=== PATIENT | female | born 1980 | race Caucasian/White ===

== ENCOUNTER 2019-11-04 22:21 | Outpatient (REF) | payer MEDICAID, SELFPAY ==
[2019-11-04 21:26] LABS: Calculated LDL 132 mg/dL (<100); Cholesterol 226 mg/dL (<200); HDL Cholesterol 56 mg/dL (40-60); Triglyceride 190 mg/dL (<150)
[2019-11-04 21:42] LABS: Hemoglobin A1C 5.1 % (3.8-5.6)
== END 2019-11-04 22:41 ==
LOC: LBN 22:21
PROVIDERS: PCP Nurse Practitioner; Visit Provider Nurse Practitioner
DX: Z13.6 Encounter for screening for cardiovascular disorders (principal); Z13.1 Encounter for screening for diabetes mellitus
CPT/HCPCS: 80061; 83036

== ENCOUNTER 2019-11-09 00:47 | Outpatient (CLI) | payer MEDICAID, SELFPAY ==
--- NOTE | 2019-11-09 09:15 | DI.RAD_ITS ---
EXAM: XR LUMBAR SPINE AP, LAT CLINICAL HISTORY: low back pain,M54.5, CHRONIC PAIN, G89.29. TECHNIQUE: 2D digital imaging was performed. COMPARISON: No exams were available for comparison FINDINGS: Vertebral bodies are well maintained in height. Disc spaces are well maintained. There is a slight dextro rotoscoliosis. No spondylolysis or spondylolisthesis is seen. An IUD is incidentally noted. IMPRESSION: Mild scoliosis. DATA REPOSITORY: RADIATION DOSE DELIVERED:
== END 2019-11-09 01:07 ==
PROVIDERS: PCP Nurse Practitioner; Visit Provider Nurse Practitioner
DX: M41.9 Scoliosis, unspecified (principal); M54.5 Low back pain; G89.29 Other chronic pain
CPT/HCPCS: 72100

== ENCOUNTER 2021-03-22 08:23 | Emergency (ER) | payer MEDICAID, SELFPAY ==
[2021-03-22] VITALS (10 sets, daily range): BP systolic 128–135; BP diastolic 84–98; PULSE 74–135; RESP 20–29; TEMP 36.4; O2SAT 99–100
--- NOTE | 2021-03-22 08:30 | RT.EKG_ITS ---
APPROVED REPORT Exam: Resting ECG Reason for Exam: tachycardia Patient Location: E HR:121 bpm ECG Measurements Heart Rate 121 AXIS SC 123 P 62 QRSd 84 QRS 80 QT 325 T -30 QTc 461 Conclusion Sinus tachycardia...rate> 99 Probable left atrial enlargement...P >50mS, <-0.10mV V1
--- NOTE | 2021-03-22 08:45 | DI.CT_ITS ---
Exam(s) CT ABDOMEN PELVIS W EXAM: CT ABDOMEN PELVIS W CLINICAL HISTORY: epigastric pain, vomiting. TECHNIQUE: Imaging Protocol: Axial computed tomography images with coronal and sagittal reformatted images were created and reviewed CONTRAST MATERIAL: Intravenous: Omnipaque 100cc Oral: None COMPARISON: No exams were available for comparison FINDINGS: VISUALIZED LUNG BASES: No nodules nor pleural effusions evident. ABDOMEN: There is a moderate amount of ascites in both the upper abdomen and in the pelvis. Also fluid around the GE junction. There is a small hiatal hernia. No free air evident. LIVER: There are no focal hepatic lesions evident. Mild steatosis. Perihepatic ascites noted GALLBLADDER/BILIARY: Gallbladder is folded upon itself. However, no gallstones evident. No gallblad luana wall edema. No pericholecystic fluid. CBD is not dilated. PANCREAS: No evidence of pancreatic mass nor dilatation of the pancreatic duct. SPLEEN: Perisplenic fluid noted. No splenic laceration. Spleen size normal. Splenic and portal vei ns are patent. ADRENALS: There are no significant adrenal masses. KIDNEYS:No cysts evident. No solid renal masses. No calculi nor hydronephrosis.. ABDOMINAL AORTA: Abdominal aorta is not enlarged. LYMPH NODES:There is no retroperitoneal nor paraaortic adenopathy. ABDOMINAL WALL: No evidence of significant anterior abdominal wall nor inguinal hernia. GI: There is diffuse edema of multiple small bowel loops. These bowel loops measure less than 2.5 cm in diameter but exhibits uniform wall thickening of approximately 6 millimeters and this is most pro bably responsible for the ascites. There does not appear to be an obvious corresponding colitis alejandro lynda. Celiac artery is patent. Superior mesenteric artery is patent and without evidence of emboli t herein. Inferior mesenteric artery is patent. PELVIS: GI: No evidence of appendicitis.No evidence of sigmoid diverticulitis. LYMPH NODES: There is no intrapelvic nor inguinal adenopathy. REPRODUCTIVE: There is an IUD in the uterine canal. This appears to be in satisfactory position. Th e uterus is anteverted. The ovaries contain cysts. Largest cyst in the right ovary measures 2.9 x 0 .2 cm. There is a smaller partially enhancing probable hemorrhagic cyst in left ovary measuring 11 x 12 millimeters URINARY BLADDER: No calculi nor obvious masses evident OSSEOUS: No significant osseous lesions. Sacroiliac joints unremarkable. IMPRESSION: 1. There are multiple edematous small bowel loops with resultant moderate ascites. Consistent with s evere enteritis. There is no obvious colitis pattern. No bowel obstruction. No free air. No absce ss. 2. Ovarian cysts, as described above. 3. There is an IUD in the uterus which appears to be in satisfactory position. Report called by myself to ER provider. RADIATION DOSE DELIVERED: 875.94mGy.cm Total DLP DATA REPOSITORY: All CT scans at this facility are submitted to the National Radiology Data Registry (NRDR) Dose Index Registry (DIR) with the [employer] (A[employer]). RADIATION OPTIMIZATION: All CT scans at this facility use at least one of these dose optimization te chniques: automated exposure control; mA and/or kV adjustment per patient size (includes targeted exa ms where dose is matched to clinical indication); or iterative reconstruction.
[2021-03-22 09:10] LABS: Abs Immature Grans 0.11 10^3/uL (0.0-0.06); Absolute Eosinophil Count 0.04 10^3/uL (0.0-0.7); Absolute Lymphocyte Count 1.38 10^3/uL (1.2-3.4); Absolute Monocyte Count 1.07 10^3/uL (0.1-0.8); Basophils % 0.4; Eosinophils % 0.2; HCT 47.7 % (36.0-46.0); HGB 15.8 g/dL (11.2-15.7); Immature Grans % 0.6; Lymphocytes % 7.6; MCH 30.4 pg (27.0-33.0); MCHC 33.1 % (32.0-36.0); MCV 91.9 fL (80-95); MPV 11.2 fL (8.0-11.0); Monocytes % 5.9; Neutrophils % 85.3; Nucleated RBC 0 %; Platelet Count 251 10^3/uL (130-400); RBC 5.19 10^6/uL (3.93-5.22); RDW 13.2 % (11.7-14.6); WBC 18.13 10^3/uL (4.4-10.8)
[2021-03-22 09:12] LABS: Absolute Basophil Count 0.07 10^3/uL (0.0-0.2); Absolute Neutrophil Count 15.46 10^3/uL (1.2-6.7)
[2021-03-22] MEDS: Normal Saline 1,000 ML 2000 ML IV (09:12)
[2021-03-22 09:25] LABS: Lipase 213 U/L (73-393)
[2021-03-22 09:32] LABS: HCG Qual (Serum) Negative
[2021-03-22] MEDS: ACETAMINOPHEN 1,000 MG/100 ML BTL 400 MG IVPB (09:35)
[2021-03-22 10:08] LABS: ALT 89 U/L (14-59); AST 26 U/L (15-37); Albumin 4.2 g/dL (3.4-5.0); Alkaline Phosphatase 61 U/L (46-116); Anion Gap 14.6 mmol/L (3-11); BUN 21 mg/dL (7-18); CO2 25.4 mmol/L (21.0-32.0); CREATININE 0.9 mg/dL (0.55-1.02); Calcium 10.1 mg/dL (8.5-10.1); Chloride 96 mmol/L (98-107); Glucose 154 mg/dL (74-106); Magnesium 1.8 mg/dL (1.8-2.4); Potassium 3.4 mmol/L (3.5-5.1); Sodium 136 mmol/L (136-145); Troponin I < 0.05 ng/mL (<0.06)
[2021-03-22 10:48] LABS: Bilirubin Moderate (Negative); Blood Negative (Negative); Clarity Clear (Clear); Glucose Negative (Negative); Ketones >=160 mg/dL (Negative); Leukocyte Esterase Negative (Negative); Nitrite Negative (Negative); Specific Gravity 1.025 (1.005-1.025); Urobilinogen 0.2 EU/dL (Up TO 0.2)
[2021-03-22 10:59] LABS: Bacteria Few HPF (Negative); C & S Indicated? No/Sq. Contamination; Casts Negative LPF (Negative); Crystals Negative HPF (Negative); Epithelial Cells Many HPF (Negative); Mucus Moderate (Negative); RBC 0-2 HPF (0-2); WBC 0-2 HPF (0-5)
[2021-03-22] MEDS: Omnipaque 350 MG/ML 100 ML BTL IJ (11:00)
--- NOTE | 2021-03-22 11:10 | DI.RAD_ITS ---
Exam(s) XR CHEST 2V PA LATERAL EXAM: XR CHEST 2V PA LATERAL CLINICAL HISTORY: epigastric pain. TECHNIQUE: 2D digital imaging was performed. COMPARISON: CT CT ABDOMEN PELVIS W from 03/22/[address] ABDOMEN PELVIS W from 03/22/2021 FINDINGS: Heart size is normal. The mediastinum is not widened. Lungs are clear. No infiltrates nor pleural effusions. IMPRESSION: No acute pulmonary findings. DATA REPOSITORY: RADIATION DOSE DELIVERED:
--- NOTE | 2021-03-22 12:43 | W.ED.GENAD ---
Discharge Plan Disposition Patient Disposition: HOME Condition: Stable Discharge Details Clinical Impression: Nausea vomiting and diarrhea, Dehydration Primary Care Provider: Ronna Suazo ED Provider: Susie Rachel Home Meds and New Rx's Prescriptions: New promethazine 25 mg tablet 25 mg PO TID Qty: 10 RF: 0 potassium chloride 20 mEq tablet,ER particles/crystals 20 meq PO DAILY Qty: 7 RF: 0 Continued lisinopril 5 mg tablet 5 mg PO DAILY Qty: 90 RF: 4 Mirena 1 EACH intrauterine device RF: 0 Discharge Instructions Instructions: Dehydration (ED), Acute Nausea and Vomiting (ED) Additional Instructions: Phenergan for nausea and vomiting Gatorade, water, Jell-O, broth Please return with inability to consume p.o. fluids, recurrent abdominal pain, fever, or with any new or worsening complaints Bring a stool sample and if you are able to Isolate until your Covid test returns Start taking the potassium tomorrow Stand Alone Forms: PENDING COVID-19 TESTING, Work Release Referrals: Ronna Suazo, SENIOR OFFICE ASSISTANT [Primary Care Provider] - Discharge Data Discharge Date/Time-TO BE ENTERED AT DEPARTURE: 03/22/21 13:46 Medical Decision Making Patient has leukocytosis, 18,000, mild, hypokalemia, 3.4, and mild gap of 14 She does have ketones in her urine consistent with dehydration, she was given 2 L bolus, Phenergan CT was ordered secondary to diffuse abdominal tenderness Patient also initially tachycardic with abnormal vital signs, however at time of reassessment, patient is resting comfortably in room, her pulse is now 86 and her vitals are stable Her abdomen is just minimally tender without rebound or guarding and she has not vomited throughout her stay P.o. challenge was initiated Discussed with the radiologist, Dr. Daniel I relayed the findings consistent with likely viral enteritis on CT scan Case was subsequently discussed with Dr. Garcia given severity of imaging Patient is feeling marked improvement she requested return, I think at this time she is stable for discharge home, she is given a lab sheet for stool sample in the outpatient setting and she is able to tolerate p.o. She is given antiemetics for home Discussed p.o. liquids small amounts frequently Covid test pending and patient will isolate turns Patient is ill with significant CT findings, we did talk about admission but as patient is feeling marked improvement and able to tolerate p.o. and about status is quite limited, I do not think is unreasonable to perform at home trial Patient feels comfortable with this plan and will return immediately should she have persistent or worsening symptoms Return precautions discussed in great detail, patient alert, oriented, of decisional capacity discharged home in care of partner HPI General Mode of arrival: ambulatory. Date/Time Provider Initiated Documentation: 03/22/21 08:28. Limitations to Documentation: no limitations. Information obtained by: patient. HPI Narrative: This 40-year-old female presents of nausea, vomiting, diarrhea, abdominal pain persistent for the past 2 days. Otherwise healthy aside from history of hypertension. Denies any chest pain or shortness of breath. Denies any dizziness or weakness. Denies any blood in vomitus or stool. Covid vaccinated, denies any cough or fever. Any known sick contacts. Symptoms started after consuming a meal at a restaurant approximately 6 hours later with initially complaints of nausea and vomiting.. Given her persistent symptoms, she presents here. She does consume alcohol approximately 3-4 drinks daily. Denies history of withdrawal symptoms in the past. Related Data Home Medications Medication Instructions Recorded Confirmed Mirena 01/12/15 12/01/20 lisinopril 5 mg tablet 5 mg PO DAILY #90 tab 12/01/20 03/22/21 potassium chloride 20 meq PO DAILY #7 tab 03/22/21 promethazine 25 mg PO TID #10 tab 03/22/21 Previous Rx's Medication Instructions Recorded lisinopril 5 mg tablet 5 mg PO DAILY #90 tab 12/01/20 potassium chloride 20 meq PO DAILY #7 tab 03/22/21 promethazine 25 mg PO TID #10 tab 03/22/21 Allergies Allergy/AdvReac Type Severity Reaction Status Date / Time No Known Allergies Allergy Verified 03/22/21 09:24 General Stated Complaint: Abd Prob VALENTIN: 3 Review of Systems All systems reviewed & are unremarkable except as noted in HPI and below PFSH All Active Problems (Updated 03/22/21 @ 12:49 by SILVIA Gross) Nausea vomiting and diarrhea (Acute) Dehydration (Acute) Hypertension (Chronic) Low back pain (Acute) Excessive drinking of alcohol (Acute) Tobacco dependence (Acute) Obesity (Chronic) Anxiety (Chronic) Depression (Chronic) Surgical History (Updated 01/28/18 @ 14:36 by [facility]) section Open Carpal Tunnel release Family History Father Heart disease in his 60s Social History (Updated 11/10/20 @ 08:52 by Brendon Nielsen) Smoking/Tobacco Use Status: Current every day Tobacco Type: cigarettes Tobacco: How many years used: 22 Counseling given: counseling >3 minutes Smoking risk assessment performed?: Yes Drug use: Never Substance use type: does not use Caregiver/Support person: No Household members: children Housing: apartment Communication Needs: None Do you need help understanding health information?: Rarely Pets and animals: Yes Pets and animals: cat(s) Sexually active: No Do you think of yourself as: straight/heterosexual Current gender identity: female What is your relationship status?: never How often do you talk on the phone with friends or family?: twice per week How often do you get together with friends or relatives?: twice per week How often do you attend hinduism or religion services?: 1-3 times per year Do you belong to any clubs or organized social groups?: no Panel score (0-1 are the most socially isolated patients): 1 What type of physical activity do you participate in: other Details: work Duration: < 15 minutes/day Frequency: 3-4 times per week Brittaney/Samaritan: Scientology Special brittaney needs: No Seatbelt use: always Helmet use: Yes Helmet use: always Drive intox or ride w/intox water tanker driver: No Do you feel safe at home: Yes Do you feel safe in your relationship?: Yes Exam Const General: cooperative and comfortable HENME Other: Moist mucous membranes Eyes Sclera: sclerae normal Resp Effort & Inspection: normal respiratory effort Auscultation: clear to auscultation bilaterally Cardio Rate: regular rate Rhythm: regular rhythm Other: Distal pulses intact GI Other: Diffuse abdominal tenderness without rebound or guarding Skin General skin exam: no rashes or lesions noted Neuro General: patient alert and patient oriented x3 Extrem Other: No peripheral edema Course Vital Signs Vital signs: Vital Signs Temperature 36.4 C L 03/22/21 08:27 Pulse 135 H 03/22/21 08:27 Blood Pressure 135/98 H 03/22/21 08:27 Pulse Oximetry 99 03/22/21 08:27 Temperature 36.4 C L 03/22/21 08:27 Temperature Source Temporal Artery Scan 03/22/21 08:27 Pulse 83 03/22/21 10:45 Pulse 88 03/22/21 10:50 Respiratory Rate 29 H 03/22/21 10:50 Blood Pressure 128/84 03/22/21 10:45 Blood Pressure Mean 95 03/22/21 10:45 Blood Pressure Position Supine 03/22/21 08:27 Pulse Oximetry 99 03/22/21 10:50 Oxygen Delivery Method Room Air 03/22/21 08:27 Oxygen Flow Rate 0 03/22/21 08:27 Lab/Test Results Lab/Test Results: Laboratory Tests Range/Units 03/22/21 03/22/21 03/22/21 08:50 08:50 08:50 WBC (4.4-10.8) 10^3/uL 18.13 H RBC (3.93-5.22) 10^6/uL 5.19 Hgb (11.2-15.7) g/dL 15.8 H Hct (36.0-46.0) % 47.7 H MCV (80-95) fL 91.9 MCH (27.0-33.0) pg 30.4 MCHC (32.0-36.0) % 33.1 RDW (11.7-14.6) % 13.2 Plt Count (130-400) 10^3/uL 251 MPV (8.0-11.0) fL 11.2 H Immature Gran % 0.6 Neutrophils % 85.3 Lymphocytes % 7.6 Monocytes % 5.9 Eosinophils % 0.2 Basophils % 0.4 Nucleated RBC % % 0 Absolute Neutrophils (1.2-6.7) 10^3/uL 15.46 H Absolute Lymphocytes (1.2-3.4) 10^3/uL 1.38 Absolute Monocytes (0.1-0.8) 10^3/uL 1.07 H Absolute Eosinophils (0.0-0.7) 10^3/uL 0.04 Absolute Basophils (0.0-0.2) 10^3/uL 0.07 Sodium (136-145) mmol/L 136 Potassium (3.5-5.1) mmol/L 3.4 L Chloride (98-107) mmol/L 96 L Carbon Dioxide (21.0-32.0) mmol/L 25.4 Anion Gap (3-11) mmol/L 14.6 H BUN (7-18) mg/dL 21 H Creatinine (0.55-1.02) mg/dL 0.9 Estimated GFR/1.73 m2 (mL/min/1.73m2) >= 60.00 Glucose (74-106) mg/dL 154 H Calcium (8.5-10.1) mg/dL 10.1 Magnesium (1.8-2.4) mg/dL 1.8 Total Bilirubin (0.2-1.0) mg/dL 1.0 AST (15-37) U/L 26 ALT (14-59) U/L 89 H Alkaline Phosphatase (46-116) U/L 61 Troponin I (<0.06) ng/mL < 0.05 Total Protein (6.4-8.2) g/dL 8.0 Albumin (3.4-5.0) g/dL 4.2 Lipase (73-393) U/L 213 Serum HCG, Qual Urine Color (Yellow) Urine Clarity (Clear) Urine pH (5-8) Ur Specific [place] (1.005-1.025) Urine Protein (Negative) mg/dL Urine Ketones (Negative) mg/dL Urine Blood (Negative) Urine Nitrite (Negative) Urine Bilirubin (Negative) Urine Urobilinogen (Up TO 0.2) EU/dL Ur Leukocyte Esterase (Negative) Urine RBC (0-2) HPF Urine WBC (0-5) HPF Ur Epithelial Cells (Negative) HPF Urine Crystals (Negative) HPF Urine Bacteria (Negative) HPF Urine Casts (Negative) LPF Urine Mucus (Negative) Ur Culture Indicated? Urine Glucose (Negative) mg/dL Range/Units 03/22/21 03/22/21 03/22/21 08:50 10:38 11:45 WBC (4.4-10.8) 10^3/uL RBC (3.93-5.22) 10^6/uL Hgb (11.2-15.7) g/dL Hct (36.0-46.0) % MCV (80-95) fL MCH (27.0-33.0) pg MCHC (32.0-36.0) % RDW (11.7-14.6) % Plt Count (130-400) 10^3/uL MPV (8.0-11.0) fL Immature Gran % Neutrophils % Lymphocytes % Monocytes % Eosinophils % Basophils % Nucleated RBC % % Absolute Neutrophils (1.2-6.7) 10^3/uL Absolute Lymphocytes (1.2-3.4) 10^3/uL Absolute Monocytes (0.1-0.8) 10^3/uL Absolute Eosinophils (0.0-0.7) 10^3/uL Absolute Basophils (0.0-0.2) 10^3/uL Sodium (136-145) mmol/L Potassium (3.5-5.1) mmol/L Chloride (98-107) mmol/L Carbon Dioxide (21.0-32.0) mmol/L Anion Gap (3-11) mmol/L BUN (7-18) mg/dL Creatinine (0.55-1.02) mg/dL Estimated GFR/1.73 m2 (mL/min/1.73m2) Glucose (74-106) mg/dL Calcium (8.5-10.1) mg/dL Magnesium (1.8-2.4) mg/dL Total Bilirubin (0.2-1.0) mg/dL AST (15-37) U/L ALT (14-59) U/L Alkaline Phosphatase (46-116) U/L Troponin I (<0.06) ng/mL Cancelled Total Protein (6.4-8.2) g/dL Albumin (3.4-5.0) g/dL Lipase (73-393) U/L Serum HCG, Qual Negative Urine Color (Yellow) Yellow Urine Clarity (Clear) Clear Urine pH (5-8) 6.0 Ur Specific [place] (1.005-1.025) 1.025 Urine Protein (Negative) mg/dL 30 H Urine Ketones (Negative) mg/dL >=160 H Urine Blood (Negative) Negative Urine Nitrite (Negative) Negative Urine Bilirubin (Negative) Moderate H Urine Urobilinogen (Up TO 0.2) EU/dL 0.2 Ur Leukocyte Esterase (Negative) Negative Urine RBC (0-2) HPF 0-2 Urine WBC (0-5) HPF 0-2 Ur Epithelial Cells (Negative) HPF Many Urine Crystals (Negative) HPF Negative Urine Bacteria (Negative) HPF Few Urine Casts (Negative) LPF Negative Urine Mucus (Negative) Moderate Ur Culture Indicated? No/Sq. Contamination Urine Glucose (Negative) mg/dL Negative POC- Test(urine) Negative PAWSS Have you Been Recently Intoxicated or Drunk Within the Last 30 days?: No Have you Ever Experienced Previous Episodes of Alcohol Withdrawal?: Yes Have you ever Experienced Withdrawal Seizures?: No Have you ever Experienced Delirium Tremens(DT)s?: No Have you ever undergone Alcohol Rehabilitation Treatment (i.e, inpt ot outpatient treatment programs)?: No Have you ever Experienced Blackouts?: No Have you ever Combined Alcohol with other Downers within the last 90 days?: No Have you ever Combined Alcohol with any other Substance of Abuse during the last 90 days?: No Positive Blood Alcohol level on Presentation? [PCS.BAL]: No Evidence of Increased Autonomic Activity (i.e. HR>120, tremor, sweating, agitation, nausea)?: No Result: 1
[2021-03-23 18:55] LABS: COVID-19 RT-PCR UVMMC Result Negative (Negative)
== END 2021-03-22 13:46 | disposition home or self-care (01) ==
PROVIDERS: Emergency Provider Physician Assistant; PCP Nurse Practitioner
DX: R11.2 Nausea with vomiting, unspecified (principal); R19.7 Diarrhea, unspecified; E86.0 Dehydration; R00.0 Tachycardia, unspecified; R10.13 Epigastric pain; E87.6 Hypokalemia
CPT/HCPCS: 36415; 80053; 81025; 83690; 93005; 96361; 96365; 96367; 99285; U0003; 71046; 74177; 81003; 81015; 83735; 84484; 84703; 85025; 93010; 99284; J0131; J3490

== ENCOUNTER 2021-03-25 09:16 | Emergency (ER) | payer MEDICAID, SELFPAY ==
[2021-03-25 09:20] VITALS: BP 129/95; PULSE 123; RESP 16; TEMP 36.3; O2SAT 100
[2021-03-25] MEDS: Ondansetron 4 MG/2 ML VIAL IVP (10:04)
[2021-03-25 10:11] LABS: Abs Immature Grans 0.06 10^3/uL (0.0-0.06); Absolute Basophil Count 0.07 10^3/uL (0.0-0.2); Absolute Eosinophil Count 0.26 10^3/uL (0.0-0.7); Basophils % 0.5; HCT 47.7 % (36.0-46.0); HGB 15.7 g/dL (11.2-15.7); Immature Grans % 0.5; Lymphocytes % 9.8; MCH 30.6 pg (27.0-33.0); MCHC 32.9 % (32.0-36.0); MPV 10.7 fL (8.0-11.0); Monocytes % 6.8; Neutrophils % 80.4; Nucleated RBC 0 %; Platelet Count 256 10^3/uL (130-400); RBC 5.13 10^6/uL (3.93-5.22); RDW 12.3 % (11.7-14.6); RDW-SD 42.5 fL; WBC 13.22 10^3/uL (4.4-10.8)
[2021-03-25 10:14] LABS: Absolute Neutrophil Count 10.63 10^3/uL (1.2-6.7)
[2021-03-25] MEDS: Normal Saline 1,000 ML 1000 ML IV (10:21)
[2021-03-25 10:26] LABS: ALT 51 U/L (14-59); AST 21 U/L (15-37); Albumin 4.2 g/dL (3.4-5.0); Alkaline Phosphatase 63 U/L (46-116); Anion Gap 18.7 mmol/L (3-11); BUN 18 mg/dL (7-18); Bilirubin, Total 0.6 mg/dL (0.2-1.0); CO2 18.3 mmol/L (21.0-32.0); CREATININE 0.8 mg/dL (0.55-1.02); Calcium 10.6 mg/dL (8.5-10.1); Chloride 96 mmol/L (98-107); Glucose 95 mg/dL (74-106); Lipase 115 U/L (73-393); Potassium 3.4 mmol/L (3.5-5.1); Sodium 133 mmol/L (136-145); Total Protein 8.2 g/dL (6.4-8.2)
[2021-03-25 10:36] VITALS: BP 115/81; PULSE 84; RESP 14; O2SAT 98
[2021-03-25] MEDS: Dicyclomine 20 MG TAB PO (10:50)
[2021-03-25] MEDS: Ketorolac 30 MG/ML VIAL IVP (10:50)
--- NOTE | 2021-03-25 11:11 | ED.GENADUL_ITS ---
Discharge Plan Disposition Patient Disposition: HOME Condition: Improving Discharge Details Clinical Impression: Nausea vomiting and diarrhea, Abdominal pain Primary Care Provider: Ronna Suazo ED Provider: Shlomo Barrera Home Meds and New Rx's Prescriptions: New ondansetron HCl [Zofran] 4 mg tablet 4 mg PO Q8H PRNQty: 10 RF: 0 dicyclomine 20 mg tablet 20 mg PO QID Qty: 10 RF: 0 omeprazole 20 mg capsule,delayed release(DR/EC) 20 mg PO BID Qty: 14 RF: 0 Continued lisinopril 5 mg tablet 5 mg PO DAILY Qty: 90 RF: 4 Mirena 1 EACH intrauterine device RF: 0 promethazine 25 mg tablet 25 mg PO TID Qty: 10 RF: 0 potassium chloride 20 mEq tablet,ER particles/crystals 20 meq PO DAILY Qty: 7 RF: 0 Discharge Instructions Instructions: Acute Nausea and Vomiting (ED), Abdominal Pain (ED) Additional Instructions: Clear liquid diet, advance as tolerated. Zofran, omeprazole, Bentyl as directed. [id number]-varasfw Imodium as directed. Please watch for new or worsening symptoms and return to the ER for any concerns. Otherwise I recommend reaching out your primary care provider tomorrow to discuss your ER visit, ongoing symptoms, need for outpatient reevaluation Discharge Data Discharge Date/Time-TO BE ENTERED AT DEPARTURE: 03/25/21 13:25 Medical Decision Making 40-year-old female presents with continuation of abdominal pain, nausea, vomiting, diarrhea. She clinically appears dry, will obtain IV access, give IV Zofran, IV fluid, obtain routine scNeening laboratory values. Abdomen is soft, nonsurgical. Reviewing her recent visit, CT imaging revealed what appeared to be enteritis. Laboratory values today revealed improving leukocytosis of 13.22. Anion gap 18.7. Patient is receiving 1 L normal saline I will give another liter of lactated Ringer's and recheck her BNP. Given her decreasing leukocytosis, we discussed options. Discussed that we could certainly repeat his CT today, patient declines as she had one during her last visit. She responded nicely to the Zofran, denies any vomiting while here in the ER and reports nausea is improved. Plan is to give IV Toradol, p.o. Bentyl and a GI cocktail. Patient is unable to provide us a stool sample, no diarrhea while here under my care. Her urinalysis reveals greater than 1 ketones but no signs of infection. As stated above, patient is receiving 2 L of IV fluid. Upon reevaluation she reports that her symptoms have resolved completely with th e medications given. Repeat anion gap 11.1, closing nicely with IV hydration. Clinically she appears well, nontoxic, no distress. Vital signs are unremarkable. She is hemodynamically stable. Abdomen is soft, nontender, she is afebrile, certainly nonsurgical abdominal examination at this time. Given her ongoing symptoms and recent ER visit, very strict discharge and return precautions were provided. I will provide her a prescription of Bentyl and Zofran. Given she feels as though there is a component of acid reflux, I will also prescribe omeprazole. She was instructed to contact her primary care provider to discuss her ongoing symptoms and potential need to have referral to GI specialist, endoscopy, colonoscopy, etc. for further evaluation of her ongoing symptoms. This documentation was generated using [employer] dictation system, please disregard any oddities of phrase or misspellings. Medical Records Medical records reviewed: Yes I reviewed the patient's medical records. Lab Data Lab results reviewed: Yes I reviewed the patient's lab results. Labs: Laboratory Tests Range/Units 03/25/21 03/25/21 03/25/21 10:00 10:00 11:30 WBC (4.4-10.8) 10^3/uL 13.22 H RBC (3.93-5.22) 10^6/uL 5.13 Hgb (11.2-15.7) g/dL 15.7 Hct (36.0-46.0) % 47.7 H MCV (80-95) fL 93.0 MCH (27.0-33.0) pg 30.6 MCHC (32.0-36.0) % 32.9 RDW (11.7-14.6) % 12.3 Plt Count (130-400) 10^3/uL 256 MPV (8.0-11.0) fL 10.7 Immature Gran % 0.5 Neutrophils % 80.4 Lymphocytes % 9.8 Monocytes % 6.8 Eosinophils % 2.0 Basophils % 0.5 Nucleated RBC % % 0 Absolute Neutrophils (1.2-6.7) 10^3/uL 10.63 H Absolute Lymphocytes (1.2-3.4) 10^3/uL 1.30 Absolute Monocytes (0.1-0.8) 10^3/uL 0.90 H Absolute Eosinophils (0.0-0.7) 10^3/uL 0.26 Absolute Basophils (0.0-0.2) 10^3/uL 0.07 Sodium (136-145) mmol/L 133 L Potassium (3.5-5.1) mmol/L 3.4 L Chloride (98-107) mmol/L 96 L Carbon Dioxide (21.0-32.0) mmol/L 18.3 L Anion Gap (3-11) mmol/L 18.7 H BUN (7-18) mg/dL 18 Creatinine (0.55-1.02) mg/dL 0.8 Estimated GFR/1.73 m2 (mL/min/1.73m2) >= 60.00 Glucose (74-106) mg/dL 95 Calcium (8.5-10.1) mg/dL 10.6 H Total Bilirubin (0.2-1.0) mg/dL 0.6 AST (15-37) U/L 21 ALT (14-59) U/L 51 Alkaline Phosphatase (46-116) U/L 63 Total Protein (6.4-8.2) g/dL 8.2 Albumin (3.4-5.0) g/dL 4.2 Lipase (73-393) U/L 115 Urine Color (Yellow) Yellow Urine Clarity (Clear) Sl Cloudy Urine pH (5-8) 6.0 Ur Specific [place] (1.005-1.025) >= 1.030 H Urine Protein (Negative) mg/dL 30 H Urine Ketones (Negative) mg/dL >=160 H Urine Blood (Negative) Negative Urine Nitrite (Negative) Negative Urine Bilirubin (Negative) Moderate H Urine Urobilinogen (Up TO 0.2) EU/dL 0.2 Ur Leukocyte Esterase (Negative) Negative Urine RBC (0-2) HPF 0-2 Urine WBC (0-5) HPF 0-2 Ur Epithelial Cells (Negative) HPF Many Urine Crystals (Negative) HPF Negative Urine Bacteria (Negative) HPF Few Urine Casts (Negative) LPF Negative Urine Mucus (Negative) Moderate Ur Culture Indicated? No/Sq. Contamination Urine Glucose (Negative) mg/dL Negative Range/Units 03/25/21 12:35 WBC (4.4-10.8) 10^3/uL RBC (3.93-5.22) 10^6/uL Hgb (11.2-15.7) g/dL Hct (36.0-46.0) % MCV (80-95) fL MCH (27.0-33.0) pg MCHC (32.0-36.0) % RDW (11.7-14.6) % Plt Count (130-400) 10^3/uL MPV (8.0-11.0) fL Immature Gran % Neutrophils % Lymphocytes % Monocytes % Eosinophils % Basophils % Nucleated RBC % % Absolute Neutrophils (1.2-6.7) 10^3/uL Absolute Lymphocytes (1.2-3.4) 10^3/uL Absolute Monocytes (0.1-0.8) 10^3/uL Absolute Eosinophils (0.0-0.7) 10^3/uL Absolute Basophils (0.0-0.2) 10^3/uL Sodium (136-145) mmol/L 135 L Potassium (3.5-5.1) mmol/L 3.5 Chloride (98-107) mmol/L 101 Carbon Dioxide (21.0-32.0) mmol/L 22.9 Anion Gap (3-11) mmol/L 11.1 H BUN (7-18) mg/dL 19 H Creatinine (0.55-1.02) mg/dL 0.8 Estimated GFR/1.73 m2 (mL/min/1.73m2) >= 60.00 Glucose (74-106) mg/dL 82 Calcium (8.5-10.1) mg/dL 9.3 Total Bilirubin (0.2-1.0) mg/dL AST (15-37) U/L ALT (14-59) U/L Alkaline Phosphatase (46-116) U/L Total Protein (6.4-8.2) g/dL Albumin (3.4-5.0) g/dL Lipase (73-393) U/L Urine Color (Yellow) Urine Clarity (Clear) Urine pH (5-8) Ur Specific [place] (1.005-1.025) Urine Protein (Negative) mg/dL Urine Ketones (Negative) mg/dL Urine Blood (Negative) Urine Nitrite (Negative) Urine Bilirubin (Negative) Urine Urobilinogen (Up TO 0.2) EU/dL Ur Leukocyte Esterase (Negative) Urine RBC (0-2) HPF Urine WBC (0-5) HPF Ur Epithelial Cells (Negative) HPF Urine Crystals (Negative) HPF Urine Bacteria (Negative) HPF Urine Casts (Negative) LPF Urine Mucus (Negative) Ur Culture Indicated? Urine Glucose (Negative) mg/dL HPI General Mode of arrival: ambulatory . Date/Time Provider Initiated Documentation: 03/25/21 09:17 . Limitations to Documentation: no limitations . Information obtained by: patient . HPI Narrative: This is a 40-year-old female, past medical history of hypertension, alcohol abuse, current smoker, anxiety, depression, presenting to the ER for ongoing nausea, vomiting, abdominal cramping, diarrhea. Patient states that she was seen in the ER on 03-22-21, subsequently discharged. She tells me that she continues to have symptoms, is not feeling well enough to fast enough, and needs to go back to work. She feels like her acid reflux is worse, she is burping a rather sour and painful substan ce. She denies fever, recent illness or trauma, bad food exposure. She denies chest pain, shortness of breath, black tarry stools or bright red blood in her stools. No dysuria. Patient states that she has been taking her medications as directed but continues to have nausea and vomiting, decreased p.o. intake, concern for dehydration. Patient states that she has not had any real solid foods and therefore has not had any solid bowel movements. Patient reports that her abdominal pain is all over but worse in the central and left upper quadrant region. Pain is crampy in nature, mild to moderate. Related Data Home Medications Medication Instructions Recorded Confirmed Mirena 01/12/15 12/01/20 lisinopril 5 mg tablet 5 mg PO DAILY #90 tab 12/01/20 03/25/21 potassium chloride 20 meq PO DAILY #7 tab 03/22/21 03/25/21 promethazine 25 mg PO TID #10 tab 03/22/21 03/25/21 dicyclomine 20 mg PO QID #10 tab 03/25/21 omeprazole 20 mg PO BID #14 cap 03/25/21 ondansetron HCl [Zofran] 4 mg PO Q8H PRN #10 tab 03/25/21 Previous Rx's Medication Instructions Recorded lisinopril 5 mg tablet 5 mg PO DAILY #90 tab 12/01/20 potassium chloride 20 meq PO DAILY #7 tab 03/22/21 promethazine 25 mg PO TID #10 tab 03/22/21 dicyclomine 20 mg PO QID #10 tab 03/25/21 omeprazole 20 mg PO BID #14 cap 03/25/21 ondansetron HCl [Zofran] 4 mg PO Q8H PRN #10 tab 03/25/21 Allergies Allergy/AdvReac Type Severity Reaction Status Date / Time No Known Allergies Allergy Verified 03/25/21 09:26 General Stated Complaint: Abd Prob VALENTIN: 3 Review of Systems Constitutional Constitutional: Reports fatigue and Denies fever(s) Cardiovascular Cardiovascular: Denies chest pain and Denies dyspnea Respiratory Respiratory: Denies cough and Denies dyspnea Gastrointestinal Gastrointestinal: Reports abdominal pain, Denies melena, Denies hematochezia, Reports diarrhea, Reports nausea and Reports vomiting Genitourinary Genitourinary: Denies dysuria Musculoskeletal Musculoskeletal: Denies back pain Integumentary/Breasts Skin/Breast: Denies rash Endocrine Endocrine: Reports fatigue PFSH All Active Problems Nausea vomiting and diarrhea (Acute) Dehydration (Acute) Abdominal pain (Acute) Hypertension (Chronic) Low back pain (Acute) Excessive drinking of alcohol (Acute) Tobacco dependence (Acute) Obesity (Chronic) Anxiety (Chronic) Depression (Chronic) Surgical History section Open Carpal Tunnel release Family History Father Heart disease in his 60s Social History Smoking/Tobacco Use Status: Current every day Tobacco Type: cigarettes Tobacco: How many years used: 22 Counseling given: counseling >3 minutes Smoking risk assessment performed?: Yes Drug use: Never Substance use type: does not use Caregiver/Support person: No Household members: children Housing: apartment Communication Needs: None Do you need help understanding health information?: Rarely Pets and animals: Yes Pets and animals: cat(s) Sexually active: No Do you think of yourself as: straight/heterosexual Current gender identity: female What is your relationship status?: never How often do you talk on the phone with friends or family?: twice per week How often do you get together with friends or relatives?: twice per week How often do you attend christianity or moravian services?: 1-3 times per year Do you belong to any clubs or organized social groups?: no Panel score (0-1 are the most socially isolated patients): 1 What type of physical activity do you participate in: other Details: work Duration: < 15 minutes/day Frequency: 3-4 times per week Brittaney/Sabianism: Faith Special brittaney needs: No Seatbelt use: always Helmet use: Yes Helmet use: always Drive 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 Do you feel safe at home: Yes Do you feel safe in your relationship?: Yes Exam Const General: cooperative, healthy appearing, comfortable and no acute distress Orientation: alert and awake HENMT Head: normal to inspection, normocephalic and atraumatic Mouth: moist mucous membranes abnormal (dry) Eyes General: appearance normal, both eyes and all related structures Conjunctivae: conjunctivae normal Neck Neck: normal visual inspection, trachea midline and supple Resp Effort & Inspection: normal respiratory effort and able to speak in complete sentences Auscultation: clear to auscultation bilaterally Cardio Rate: tachycardic (118) Rhythm: regular rhythm GI Inspection: normal to inspection Palpation: soft, not firm, no guarding, no pulsatile masses and tender (Diffuse, mild, worse in the epigastric region) Auscultation: normal bowel sounds Back/Spine/Pelvis Back: No back tenderness Skin General skin exam: no rashes or lesions noted Neuro General: patient alert, patient awake, moves all extremities and no focal motor deficits Cognition: normal cognition Speech: speech normal Gait: normal gait Sensory Exam: no sensory deficits noted Psych Appearance: grossly normal Mental Status: mental status grossly normal Course Vital Signs Vital signs: Vital Signs Temperature 36.3 C L 03/25/21 09:20 Pulse 123 H 03/25/21 09:20 Respiratory Rate 16 03/25/21 09:20 Blood Pressure 129/95 H 03/25/21 09:20 Pulse Oximetry 100 03/25/21 09:20 Temperature 36.3 C L 03/25/21 09:20 Temperature Source Skin 03/25/21 09:20 Pulse 84 03/25/21 10:36 Respiratory Rate 14 03/25/21 10:36 Blood Pressure 115/81 03/25/21 10:36 Blood Pressure Position Sitting 03/25/21 09:20 Pulse Oximetry 98 03/25/21 10:36 Oxygen Delivery Method Room Air 03/25/21 10:36 Oxygen Flow Rate 0 03/25/21 10:36 Pain Level 2 03/25/21 10:36 Comment worse at night 03/25/21 09:20 Lab/Test Results Lab/Test Results: Laboratory Tests Range/Units 03/25/21 03/25/21 10:00 10:00 WBC (4.4-10.8) 10^3/uL 13.22 H RBC (3.93-5.22) 10^6/uL 5.13 Hgb (11.2-15.7) g/dL 15.7 Hct (36.0-46.0) % 47.7 H MCV (80-95) fL 93.0 MCH (27.0-33.0) pg 30.6 MCHC (32.0-36.0) % 32.9 RDW (11.7-14.6) % 12.3 Plt Count (130-400) 10^3/uL 256 MPV (8.0-11.0) fL 10.7 Immature Gran % 0.5 Neutrophils % 80.4 Lymphocytes % 9.8 Monocytes % 6.8 Eosinophils % 2.0 Basophils % 0.5 Nucleated RBC % % 0 Absolute Neutrophils (1.2-6.7) 10^3/uL 10.63 H Absolute Lymphocytes (1.2-3.4) 10^3/uL 1.30 Absolute Monocytes (0.1-0.8) 10^3/uL 0.90 H Absolute Eosinophils (0.0-0.7) 10^3/uL 0.26 Absolute Basophils (0.0-0.2) 10^3/uL 0.07 Sodium (136-145) mmol/L 133 L Potassium (3.5-5.1) mmol/L 3.4 L Chloride (98-107) mmol/L 96 L Carbon Dioxide (21.0-32.0) mmol/L 18.3 L Anion Gap (3-11) mmol/L 18.7 H BUN (7-18) mg/dL 18 Creatinine (0.55-1.02) mg/dL 0.8 Estimated GFR/1.73 m2 (mL/min/1.73m2) >= 60.00 Glucose (74-106) mg/dL 95 Calcium (8.5-10.1) mg/dL 10.6 H Total Bilirubin (0.2-1.0) mg/dL 0.6 AST (15-37) U/L 21 ALT (14-59) U/L 51 Alkaline Phosphatase (46-116) U/L 63 Total Protein (6.4-8.2) g/dL 8.2 Albumin (3.4-5.0) g/dL 4.2 Lipase (73-393) U/L 115 PAWSS Have you Been Recently Intoxicated or Drunk Within the Last 30 days?: No Have you Ever Experienced Previous Episodes of Alcohol Withdrawal?: No Have you ever Experienced Withdrawal Seizures?: No Have you ever Experienced Delirium Tremens(DT)s?: No Have you ever undergone Alcohol Rehabilitation Treatment (i.e, inpt ot outpatient treatment programs)?: No Have you ever Experienced Blackouts?: No Have you ever Combined Alcohol with other Downers within the last 90 days?: No Have you ever Combined Alcohol with any other Substance of Abuse during the last 90 days?: No Positive Blood Alcohol level on Presentation? [PCS.BAL]: No Evidence of Increased Autonomic Activity (i.e. HR>120, tremor, sweating, agitation, nausea)?: No Result: 0
[2021-03-25 11:44] LABS: Bilirubin Moderate (Negative); Blood Negative (Negative); Clarity Sl Cloudy (Clear); Glucose Negative (Negative); Ketones >=160 mg/dL (Negative); Leukocyte Esterase Negative (Negative); Nitrite Negative (Negative); Specific Gravity >= 1.030 (1.005-1.025); Urobilinogen 0.2 EU/dL (Up TO 0.2)
[2021-03-25] MEDS: Lactated Ringers 1,000 ML 1000 ML IV (11:47)
[2021-03-25 11:51] LABS: Bacteria Few HPF (Negative); C & S Indicated? No/Sq. Contamination; Casts Negative LPF (Negative); Crystals Negative HPF (Negative); Epithelial Cells Many HPF (Negative); Mucus Moderate (Negative); RBC 0-2 HPF (0-2); WBC 0-2 HPF (0-5)
[2021-03-25 12:47] LABS: Anion Gap 11.1 mmol/L (3-11); BUN 19 mg/dL (7-18); CO2 22.9 mmol/L (21.0-32.0); CREATININE 0.8 mg/dL (0.55-1.02); Calcium 9.3 mg/dL (8.5-10.1); Chloride 101 mmol/L (98-107); Glucose 82 mg/dL (74-106); Potassium 3.5 mmol/L (3.5-5.1); Sodium 135 mmol/L (136-145)
[2021-03-25 12:58] VITALS: BP 116/75; PULSE 64; RESP 14; TEMP 36.4; O2SAT 98
== END 2021-03-25 13:25 | disposition home or self-care (01) ==
PROVIDERS: Emergency Provider Physician Assistant; PCP Nurse Practitioner
DX: R11.2 Nausea with vomiting, unspecified (principal); R19.7 Diarrhea, unspecified
CPT/HCPCS: 36415; 80048; 80053; 81025; 83690; 96361; 96374; 96375; 99284; 81003; 81015; 85025; 99283; J1885; J2405

== ENCOUNTER 2021-04-18 03:54 | Outpatient (CLI) | payer MEDICAID, SELFPAY ==
[2021-04-18 12:27] LABS: Anion Gap 10.4 mmol/L (3-11); BUN 13 mg/dL (7-18); CO2 26.6 mmol/L (21.0-32.0); CREATININE 0.7 mg/dL (0.55-1.02); Calcium 9.6 mg/dL (8.5-10.1); Chloride 101 mmol/L (98-107); Glucose 102 mg/dL (74-106); Potassium 3.7 mmol/L (3.5-5.1); Sodium 138 mmol/L (136-145)
== END 2021-04-18 03:55 | disposition home or self-care (01) ==
LOC: LBO 03:54
PROVIDERS: PCP Nurse Practitioner; Visit Provider Nurse Practitioner
DX: F41.9 Anxiety disorder, unspecified (principal); K58.9 Irritable bowel syndrome, unspecified
CPT/HCPCS: 36415; 80048

== ENCOUNTER 2022-08-20 17:01 | Outpatient (REF) | payer MEDICAID, SELFPAY ==
--- NOTE | 2022-08-20 14:45 | PAPFT_PTH ---
PATIENT: Olivia Pollard LOC: [facility] U#:[id number] AGE/SX: 42/F ROOM: RE08/20/[address]: Glynn Ta DNP : 1980 BED: DIS: 08/20/2022 SPEC #: [id number] RECD: 08/21/22 12:51 STATUS: DORY REFederico #: [id number] JOSE MANUEL: 08/20/22 14:[address]: Glynn Huang [facility] Cytology RECD BY: Susie Begum Tissues: 1 - CX/ENDOCX FOR PAP SMEARS Procedures: PAP THIN PREP/UVM Screening HPV DNA PROBE Comments: [id number]
== END 2022-08-20 17:02 | disposition home or self-care (01) ==
LOC: LBN 17:01
PROVIDERS: PCP Nurse Practitioner Family; Visit Provider Nurse Practitioner Family
DX: Z12.4 Encounter for screening for malignant neoplasm of cervix (principal); Z11.51 Encounter for screening for human papillomavirus (HPV)
CPT/HCPCS: 88142; 87624

== ENCOUNTER 2022-10-02 01:57 | Outpatient (CLI) | payer MEDICAID, SELFPAY ==
--- NOTE | 2022-10-02 07:00 | DI.MRI_ITS ---
Exam(s) MR UPPER JOINT RT WO EXAM: MR UPPER JOINT RT WO CLINICAL HISTORY: lateral epicondylitis,right elbow, M77.11. TECHNIQUE: Multiplanar multisequence MRI was performed. COMPARISON: No exams were available for comparison FINDINGS: BONES: There is no fracture or contusion pattern. JOINTS: The articular cartilage is unremarkable. No joint effusion is present. TENDONS: Common flexors: Unremarkable. Common extensors: There is hyperintense signal seen in the common extensor tendon at its insertion si te consistent with a partial tear. Biceps: Unremarkable. Triceps: Unremarkable. MUSCLES: Unremarkable. MEDIAN NERVE: Unremarkable on this noncontrast examination. ULNAR NERVE: Unremarkable on this noncontrast examination. SOFT TISSUES: Unremarkable. LIGAMENTS: Ulnar collateral: Unremarkable. Radial collateral: Unremarkable. OTHER: IMPRESSION: Findings consistent with lateral epicondylitis. DATA REPOSITORY:
== END 2022-10-02 02:17 ==
LOC: DI 01:57
PROVIDERS: PCP Nurse Practitioner Family; Visit Provider Student in an Organized Health Care Education/Training Program
DX: M77.11 Lateral epicondylitis, right elbow (principal)
CPT/HCPCS: 73221

== ENCOUNTER 2022-11-01 08:04 | Day surgery (SDC) | payer MEDICAID, SELFPAY ==
[2022-11-01] VITALS (11 sets, daily range): BP systolic 102–146; BP diastolic 64–99; PULSE 77–110; RESP 11–23; TEMP 36.3–36.7; O2SAT 94–100; BMI 30.3
--- NOTE | 2022-11-01 07:25 | W.PM.OP ---
Date of service: 11/01/22 Time of Service: 11:00 Operative Note Operative Note DATE OF PROCEDURE: 11/01/22 PRE-OP DIAGNOSIS: Right elbow lateral epicondylitis POST-OP DIAGNOSIS: same PROCEDURE: Right elbow arthroscopy with debridement lateral epicondylitis, CPT # 31223 SURGEON: Rafael Garcia CRISIS INTERVENTION COUNSELOR: None None ANESTHESIA TYPE: General LMA/ETT and Primary Nerve Block Refer to Anesthesia Record ESTIMATED BLOOD LOSS: 5 COMPLICATIONS: None Patient was transported to: PACU Indications: Please see complete medical record for details. Findings: Moderate anterior and lateral synovitis. Intact cartilaginous surfaces. Partial degenerative tearing ECRB with split between it and EDC. No significant involvement ECRL. Mild fraying annular ligament without any major plica. Procedure Description: In the operating room, general anesthesia was induced. The patient was positioned lateral on the operating room table. All bony prominences were well-padded. Preoperative antibiotics were administered. The elbow was prepped and draped in the usual sterile fashion. The correct patient, procedure, and side of the procedure were all verified prior to incision. 20 cc of normal saline was used to insufflate the right elbow joint through the lateral soft spot. The howard and spread technique was used to establish the proximal anteromedial portal. A diagnostic arthroscopy of the anterior elbow compartment was performed with findings noted above. A 21-gauge needle needle was used to localize a modified direct lateral working portal for lateral epicondyle and common extensor origin debridement, using the tendon defect as a starting site. The needle was used to set the superior and inferior margins of the resection as well as free up tendon from its bony origin. A scalpel was used to howard the skin followed by Harford blade to meticulously release the ECRB as well as small amount of adjacent EDC and ECRL given severity of symptoms from the lateral epicondyle. Care was taken to work anterior to the midline of the radial head to preserve the radial collateral ligament. A 3.5 mm shaver was used to debride approximately 1 cm of diseased ECRB tendon and lightly abrade lateral epicondyle bony origin. Shaver was also used to remove the small amount of lateral and anterior synovitis. The elbow was drained of arthroscopic fluid. The medial and lateral portals were closed using 3-0 Monocryl in a buried interrupted fashion. Mastisol was applied about the incisions which were covered with Steri-Strips. Xeroform pieces were applied over both incisions and covered with dry 4 x 4 gauze. The radial pulse was 2+. The elbow was gently compressed with sulaiman bandage. The patient awoke from anesthesia without complication and was transferred to the recovery room in stable fashion.
--- NOTE | 2022-11-01 08:04 | W.PM.DSUDISC ---
Date of service: 11/01/22 Time of Service: 12:00 Discharge Plan Disposition Patient Disposition: Home Condition: Stable Discharge Details Attending Provider: Rafael Garcia Primary Care Provider: Glynn Huang Home Meds and New Rx's Prescriptions: New aspirin 81 mg capsule 81 mg PO DAILY 14 Days Qty: 14 0RF oxycodone 5 mg tablet 5 - 10 mg PO .q4-6h PRN (Reason: severe pain) Qty: 12 0RF naproxen 250 mg tablet 250 - 500 mg PO BID PRN (Reason: moderate pain and swelling) Qty: 30 0RF Continued dicyclomine 20 mg tablet 20 mg PO QID PRN (Reason: abdominal discomfort) Qty: 90 3RF hydrochlorothiazide 25 mg tablet 25 mg PO DAILY Qty: 90 0RF propranolol 20 mg tablet 30 mg PO BID PRN (Reason: anxiety) Qty: 270 4RF Mirena 1 EACH intrauterine device Discharge Instructions Additional Instructions: Surgery: Right elbow arthroscopy with debridement lateral epicondylitis Activity: Weightbearing as tolerated. Advance range of motion as comfort allows. Important to restore full elbow extension as soon as possible. Recommend avoiding repetitive activities and heavy lifting for 6-8 weeks. A physical therapy prescription will be sent electronically to start in 2 to 3 weeks. Prescriptions: Aspirin 81 mg take 1 daily to prevent a blood clot for 14 days Naproxen 250 mg take 1-2 every 12 hours with a meal as needed for moderate pain Oxycodone 5 mg take 1-2 every 4-6 hours as needed for severe pain You may use [id number] Tylenol (acetaminophen) as needed for mild pain. These pain medications may be taken all at once or in different combinations as needed. Also, recommend Colace (docusate) as a stool softener as surgery and pain medicine cause constipation. You may try [id number]-[id number] diphenhydramine (Benadryl) 25-50 mg nightly as a sleep aid Dressings: Leave dressing in place for 3 days. May then remove and leave open to air or cover incisions with Band-Aids. Leave the sticky Steri-Strips in place until they fall off or remove them after you shower. May shower after 5 days. Follow-up: 10-[address] Garcia You may take off the leg compression stockings this evening at home. You may also leave them on a few days longer if you have a history of leg swelling or edema. Let us know right away if you develop any redness, drainage, fevers, chest pain, or trouble breathing. Do not drink alcohol or drive for at least 24 hours after anesthesia. Please call the office during business hours with any questions or concerns. Discharge Orders Discharge Orders: Discharge Order (Routine); Ordered 11/01/22 Ordered By: Kalani Gonzáles DS: Diagnosis Discharge Diagnosis (1) Lateral epicondylitis, right elbow: Status: Acute
--- NOTE | 2022-11-01 08:39 | W.ANESPRE ---
General Info Date of Service Date Performed: 11/01/22 Height: 5 ft 2 in Weight: 75.296 kg Body Mass Index (BMI): 30.3 Surgical Procedure: Operation Date: 11/01/22 10:35 Proposed Procedure Side Surgeon p Elbow Arthroscopy w/Debridement Lateral Epicondylitis Right Rafael Garcia MD Meds Allergies and Home Medications Allergies Allergy/AdvReac Type Severity Reaction Status Date / Time No Known Allergies Allergy Verified 11/01/22 08:21 Home Medication Medication Instructions Recorded levonorgestrel 21 mcg/24 hours (8 01/12/15 yrs) 52 mg intrauterine device (Mirena) dicyclomine 20 mg tablet 20 mg PO QID PRN abdominal 05/10/21 discomfort #90 tabs hydrochlorothiazide 25 mg tablet 25 mg PO DAILY #90 tabs 09/23/22 propranolol 20 mg tablet 30 mg PO BID PRN anxiety #270 tabs 09/23/22 aspirin 81 mg capsule 81 mg PO DAILY prevent blood clot 11/01/22 14 days #14 caps naproxen 250 mg tablet 250 - 500 mg PO BID PRN moderate 11/01/22 pain and swelling #30 tabs oxycodone 5 mg tablet 5 - 10 mg PO .q4-6h PRN severe 11/01/22 pain #12 tabs Current Visit Medications: Current Medications Generic Name Dose Route Start Last Admin Trade Name Freq PRN Reason Stop Dose Admin Ringer's Solution 1,000 mls @ 30 mls/hr 11/01/22 06:00 IV 11/01/22 16:00 INFUSION SHEILA Cefazolin Sodium/Dextrose 2 gm in 50 mls @ 100 mls/hr 11/01/22 06:00 Ancef Duplex IVPB 11/01/22 23:59 PREOP SHEILA IV Miscellaneous Supplies 1 each 11/01/22 06:00 Iv Access IV 11/01/22 23:59 DIRECTED SHEILA Sodium Chloride 0 ml 11/01/22 06:00 Normal Saline Flush 10 Ml Syr IV 11/01/22 23:59 PRN PRN Sodium Chloride 0 ml 11/01/22 06:00 Normal Saline 10 Ml Vial IJ 11/01/22 23:59 DIRECTED PRN Sterile Water 0 ml 11/01/22 06:00 Water,Injection,Sterile 10 Ml Vial IJ 11/01/22 23:59 DIRECTED PRN PFSH Active Problems Active Problems: Problem Status Onset Code Depression F32.9 Anxiety F41.9 Obesity E66.9 Tobacco dependence F17.200 Excessive drinking of alcohol F10.10 Low back pain M54.5 Hypertension I10 IBS (irritable bowel syndrome) K58.9 Lateral epicondylitis, right elbow M77.11 Healthcare maintenance Z00.00 Surgical History Surgical History section Open Carpal Tunnel release Tobacco Smoking/Tobacco Use Status: Current every day Tobacco Type: cigarettes Passive smoking exposure: Yes Counseling given: counseling >3 minutes Alcohol Alcohol Intake: current Alcohol intake frequency: a few times a week Alcohol type: beer Substance Use Substance use: Socially Substance use type: marijuana Vital Signs and Lab Results Vital Signs Most Recent Vital Signs in EMR: Temp Pulse Resp BP Pulse Ox 36.7 C 83 15 118/93 H 97 11/01/22 09:18 11/01/22 09:18 11/01/22 09:18 11/01/22 09:18 11/01/22 09:18 Lab Results Blood Type / Crossmatch: No Data to Display Complete Blood Count: No Data to Display Complete Metabolic Panel: No Data to Display Liver Function Panel: No Data to Display Coagulation Panel: No Data to Display Cardiac Panel: No Data to Display Arterial Blood Gas: No Data to Display Venous Blood Gas: No Data to Display Pancreas Panel: No Data to Display Thyroid Panel: No Data to Display Infectious Disease: No Data to Display Blood Cultures: No Data to Display Toxicology Panel: No Data to Display Panel: No Data to Display Imaging and Studies Imaging and Studies Study information below may be from another EMR and interpreted by another provider. Please see original notes in EMR for more complete details. EKG Summary: EKG PATIENT NAME: Olivia Pollard #: [id number] ORDERING PROVIDER: Aristeo Crouch M.D. PRIMARY CARE PROVIDER:SHAHLA Mcmillan STOCK REPAIRER,JOSUE DATE/TIME OF SERVICE: 03/22/21 0837 : 1980PERFORMING LOCATION: ER APPROVED REPORT Exam: Resting ECG Reason for Exam: tachycardia Patient Location: E HR:121 bpm ECG Measurements Heart Rate 121 AXIS IA 123 P 62 QRSd 84 QRS 80 QT 325 T-30 QTc 461 Conclusion Sinus tachycardia...rate> 99 Probable left atrial enlargement...P >50mS, <-0.10mV V1 <Electronically signed by ARISTEO CROUCH MD in [facility]> E-Sign Date: 03/22/21 E-Sign Time: 08 ADDENDUM APPROVED REPORT Exam: Resting ECG Reason for Exam: tachycardia Patient Location: E HR:121 bpm ECG Measurements Heart Rate 121 AXIS IA 123 P 62 QRSd 84 QRS 80 QT 325 T-30 QTc 461 Conclusion Sinus tachycardia...rate> 99 Probable left atrial enlargement...P >50mS, <-0.10mV V1 I have reviewed and I agree with the emergency room physician's ECG interpretation. Electronically signed by: <Electronically signed by Cathy Avalos M.D. in [facility]> 03/22/21 0841 Cosigned by: Anesthesia Assessment and Plan Anesthesia History Personal History: No History of Anesthesia Complications Family History: No Family History of Anesthesia Complications Exercise Tolerance Exercise Tolerance: Metabolic Equivalents>4 Pertinent Negatives Pertinent Negatives: No Symptoms of GERD, No Major Pulmonary Symptoms or Complaints and No History of CVA/TIA Cardiac & Pulmonary Exam Cardiac Exam: Normal S1/S2 Heart Sounds Pulmonary Exam: Clear Bilateral Breath Sounds Implantable Cardiac Device Does patient have a Pacemaker or an ICD?: No Airway Exam Known Difficult Airway: No Mallampati Class: 2 Mouth Opening: Normal (> 3cm) Thyromental Distance: Greater than 3 cm Neck Range of Motion: Full ROM Neck Circumference: Normal Teeth Condition: Normal Dentition ASA Classification ASA Score: ASA 2 Emergency Case?: No NPO Status NPO Status: NPO Clears >2 hours, Solids >8 hours Status Status: Negative HCG Anesthesia Plan Resuscitation Status: Full Code Anesthesia Technique: General Anesthesia Airway Planned: Endotracheal Tube Pain Management: Surgeon and patient request nerve block Monitors Used: Standard Monitors
[2022-11-01] MEDS: Lactated Ringers 1,000 ML 30 ML IV ×2 (08:55→11:35)
[2022-11-01] MEDS: ceFAZolin 2 GM/50 ML BAG IVPB (09:45)
--- NOTE | 2022-11-01 10:22 | W.ANESNERVE ---
Nerve Block Single Injection Procedure Date and Time Date Performed: 11/01/22 Procedure Start: : Location Where Procedure Performed Procedure Location: Day Surgery Unit Reason Performed: Postoperative Analgesia Requesting Provider: Rafael Garcia Timeout Performed Timeout Performed: Yes Monitoring Used ECG, Blood Pressure and SpO2 Sterility Sterility: Hand Hygiene, Surgical Cap, Surgical Mask, Sterile Gloves and Chlorhexidine Sedation Given During Procedure Sedation Given (Indicate Dose Given): Versed IV Dose:: 2 mg Patient Mental Status Patient Mental Status: Sedate with meaningful communication Nerve Block 1st Nerve Block: Laterality: Right Block Type: Supraclavicular Ultrasound Image Saved?: Yes Needle / Catheter Used: 100mm SonoPlex II Local Anesthetic Bolus (Indicate Dose Given): Lidocaine used for local infiltration of skin, Injected in 3-5ml increments after negative blood aspiration, Bupivacaine 0.5% Dose:: 10 ml and Exparel Dose:: 10 ml Additives (Indicate Dose Given): Normal Saline Ultrasound: Sterile probe cover and gel used Nerve Stimulator: Supplement to Ultrasound use and No twitch or parasthesia noted < 0.5 mA Paresthesia: None Post Procedure Pain score (0-10): 5 Procedure Tolerated: No Complications and Patient tolerated well Procedure Outcome: Successful Performed By: Terence Tineo
[2022-11-01] MEDS: EPINEPHrine 30 MG/30 ML VIAL (11:06)
[2022-11-01] MEDS: fentaNYL 100 MCG/2 ML VIAL IVP ×2 (11:12→11:18)
[2022-11-01] MEDS: Ketorolac 15 MG/ML VIAL IVP (11:36)
[2022-11-01] MEDS: HYDROmorphone 2 MG/ML SYR IVP (11:37)
[2022-11-01] MEDS: oxyCODONE 5 MG TAB PO (12:28)
--- NOTE | 2022-11-01 13:23 | W.ANESPOSTOP ---
Postoperative Evaluation Date, Time and Location Date Performed: 11/01/22 Time Performed: 13:17 Patient Location: Day Surgery Unit Vital Signs Most Recent Imported Vital Signs: Most Recent Vital Signs Temp Pulse Resp BP Pulse Ox 36.3 C L 92 H 16 102/64 98 11/01/22 12:49 11/01/22 12:49 11/01/22 12:49 11/01/22 12:49 11/01/22 12:49 Pain Score Most Recent Pain Score: Most Recent Pain Score Pain Level 5 11/01/22 12:49 Assessment Mental Status: Awake (Alert & Oriented to Patient Baseline) Airway and Respiratory Function: Patent airway with normal (patient baseline) respiratory exam Cardiovascular Function: Hemodynamically Stable Hydration Status: Adequately Hydrated Nausea & Vomiting: No Nausea or Vomiting Pain: Pt. Denies Any Pain Peripheral Nerve Block: Regional nerve block not resolved at time of post operative discharge (Not a complete block: some tingling to fingers, numb area to lateral shoulder. Reports and demonstrates full motor sensory otherwise. Discussed care if block were to set up further. Considering this patient a failed block at this time. )
== END 2022-11-01 13:28 | disposition home or self-care (01) ==
PROVIDERS: PCP Nurse Practitioner Family; Visit Provider Student in an Organized Health Care Education/Training Program
PROC: (CPT 29830; principal; 2022-11-01 10:15)
DX: M77.11 Lateral epicondylitis, right elbow (principal)
CPT/HCPCS: 29837; 76942; 81025; J0131; J0690; J1100; J1170; J1885; J2001; J2250; J2405; J2704; J3010

== ENCOUNTER 2022-11-25 11:38 | Outpatient (CLI) | payer MEDICAID, SELFPAY ==
[2022-11-25 12:28] LABS: Anion Gap 11.2 mmol/L (3-11); BUN 11 mg/dL (7-18); CO2 27.8 mmol/L (21.0-32.0); CREATININE 0.8 mg/dL (0.55-1.02); Calcium 10.7 mg/dL (8.5-10.1); Chloride 98 mmol/L (98-107); Estimated GFR 94.28 (mL/min/1.73m2); Glucose 109 mg/dL (74-106); Potassium 3.3 mmol/L (3.5-5.1); Sodium 137 mmol/L (136-145)
[2022-11-26 09:56] LABS: HIV-1/2 Ag & Ab Screen Negative (Negative)
[2022-11-26 10:35] LABS: Hepatitis C Ab w Rflx HCV PCR Negative (Negative)
== END 2022-11-25 11:39 | disposition home or self-care (01) ==
LOC: LOS 11:38
PROVIDERS: PCP Nurse Practitioner Family; Referring Provider Nurse Practitioner Family; Visit Provider Nurse Practitioner Family
DX: I10 Essential (primary) hypertension (principal); Z11.4 Encounter for screening for human immunodeficiency virus [HIV]; Z11.59 Encounter for screening for other viral diseases
CPT/HCPCS: 36415; 80048; 86803; 87389

== ENCOUNTER 2024-02-17 11:08 | Outpatient (CLI) | payer MEDICAID, SELFPAY ==
[2024-02-17 12:40] LABS: Anion Gap 11.2 mmol/L (3-11); BUN 7 mg/dL (7-18); CO2 26.8 mmol/L (21.0-32.0); CREATININE 0.8 mg/dL (0.55-1.02); Calcium 10.9 mg/dL (8.5-10.1); Chloride 98 mmol/L (98-107); Glucose 94 mg/dL (74-106); Potassium 3.5 mmol/L (3.5-5.1); Sodium 136 mmol/L (136-145)
[2024-02-19 09:37] LABS: Lab Add On Test DONE
[2024-02-19 09:50] LABS: ALT 59 U/L (14-59); AST 73 U/L (15-37); Albumin 4.1 g/dL (3.4-5.0); Alkaline Phosphatase 55 U/L (46-116); Total Protein 8.1 g/dL (6.4-8.2)
[2024-02-23 13:38] LABS: Misc Referral (UVM) See Comments
== END 2024-02-17 11:09 | disposition home or self-care (01) ==
LOC: LOS 11:08
PROVIDERS: PCP Nurse Practitioner Family; Visit Provider Nurse Practitioner Family
DX: I10 Essential (primary) hypertension (principal); M25.531 Pain in right wrist; Z01.30 Encounter for examination of blood pressure without abnormal findings
CPT/HCPCS: 36415; 80048; 82248; 82040; 84075; 84155; 84450; 84460

== ENCOUNTER 2024-02-20 00:46 | Outpatient (CLI) | payer MEDICAID, SELFPAY ==
--- NOTE | 2024-02-20 12:22 | DI.RAD_ITS ---
Exam(s) XR HAND RT COMPLETE XR WRIST RT COMPLETE EXAM: XR WRIST RT COMPLETE CLINICAL HISTORY: persistent rt wrist pain,m25.531. TECHNIQUE: 2D digital imaging was performed. Three views. COMPARISON: CR RIGHT WRIST COMPLETE from 05/31/2009 CR XR HAND RT COMPLETE from 02/20/2024 FINDINGS: BONES: No acute fracture is present. No bony destructive lesion is seen. JOINTS: The carpal bones are normally aligned. No significant degenerative changes. SOFT TISSUE: No significant soft tissue swelling. Small rounded smoothly marginated bony fragment is noted adjacent to the ulnar styloid is likely secondary to old trauma. IMPRESSION: Unremarkable radiographs of the right wrist and hand. DATA REPOSITORY: RADIATION DOSE DELIVERED:
== END 2024-02-20 01:06 ==
LOC: DI 00:47
PROVIDERS: PCP Nurse Practitioner Family; Visit Provider Nurse Practitioner Family
DX: M25.531 Pain in right wrist (principal)
CPT/HCPCS: 73110; 73130

== ENCOUNTER 2024-02-23 03:07 | Outpatient (CLI) | payer MEDICAID, SELFPAY ==
[2024-02-23 14:52] LABS: ALT 60 U/L (14-59); AST 58 U/L (15-37); Albumin 3.8 g/dL (3.4-5.0); Alkaline Phosphatase 60 U/L (46-116); Anion Gap 10.7 mmol/L (3-11); BUN 5 mg/dL (7-18); Bilirubin, Total 0.86 mg/dL (0.2-1.0); CO2 29.3 mmol/L (21.0-32.0); CREATININE 0.8 mg/dL (0.55-1.02); Calcium 9.8 mg/dL (8.5-10.1); Chloride 94 mmol/L (98-107); Glucose 119 mg/dL (74-106); Sodium 134 mmol/L (136-145); Total Protein 7.6 g/dL (6.4-8.2)
[2024-02-23 15:25] LABS: Potassium 2.8 mmol/L (3.5-5.1)
== END 2024-02-23 03:08 | disposition home or self-care (01) ==
LOC: LBO 03:07
PROVIDERS: PCP Nurse Practitioner Family; Visit Provider Nurse Practitioner Family
DX: E83.52 Hypercalcemia (principal)
CPT/HCPCS: 36415; 80053

== ENCOUNTER 2024-09-28 17:41 | Outpatient (REF) | payer MEDICAID, SELFPAY ==
[2024-09-28 21:31] LABS: ALT 100 U/L (14-59); AST 136 U/L (15-37); Albumin 4.1 g/dL (3.4-5.0); Alkaline Phosphatase 72 U/L (46-116); Anion Gap 9.9 mmol/L (3-11); BUN 7 mg/dL (7-18); Bilirubin, Total 0.8 mg/dL (0.2-1.0); CO2 30.1 mmol/L (21.0-32.0); CREATININE 0.9 mg/dL (0.55-1.02); Calcium 10.2 mg/dL (8.5-10.1); Calculated LDL 122 mg/dL (<100); Chloride 93 mmol/L (98-107); Cholesterol 245 mg/dL (<200); Estimated GFR 80.84 (mL/min/1.73m2); Glucose 100 mg/dL (74-106); HDL Cholesterol 106 mg/dL (>or=50); Potassium 3.6 mmol/L (3.5-5.1); Sodium 133 mmol/L (136-145); Total Protein 7.8 g/dL (6.4-8.2); Triglyceride 86 mg/dL (<150)
[2024-09-29 10:00] LABS: Lab Add On Test DONE
[2024-09-29 20:03] LABS: Hepatitis A Antibody IgM Negative (Negative); Hepatitis B Core Antibody Negative (Negative); Hepatitis B surface Ag Negative (Negative); Hepatitis C Ab w Rflx HCV PCR Negative (Negative)
== END 2024-09-28 17:42 | disposition home or self-care (01) ==
LOC: LBN 17:41
PROVIDERS: PCP Nurse Practitioner Family; Visit Provider Nurse Practitioner Family
DX: Z13.220 Encounter for screening for lipoid disorders (principal); R74.8 Abnormal levels of other serum enzymes; E83.52 Hypercalcemia
CPT/HCPCS: 80053; 80061; 86704; 86709; 86803; 87340

== ENCOUNTER 2024-10-06 22:00 | Outpatient (REF) | payer MEDICAID, SELFPAY ==
[2024-10-06 21:50] LABS: HCT 36.7 % (36.0-46.0); HGB 13.4 g/dL (11.2-15.7); MCH 33.5 pg (27.0-33.0); MCHC 36.5 % (32.0-36.0); MCV 92 fL (80-95); MPV 11.2 fL (8.0-11.0); Platelet Count 256 10^3/uL (130-400); RDW 12.8 % (11.7-14.6); RDW-SD 42.9 fL; WBC 7.68 10^3/uL (4.4-10.8)
[2024-10-06 23:53] LABS: ALT 122 U/L (14-59); AST 168 U/L (15-37); Alkaline Phosphatase 73 U/L (46-116); Anion Gap 15.9 mmol/L (3-11); BUN 5 mg/dL (7-18); CO2 28.1 mmol/L (21.0-32.0); CREATININE 0.8 mg/dL (0.55-1.02); Calcium 10.1 mg/dL (8.5-10.1); Chloride 85 mmol/L (98-107); Estimated GFR 93.12 (mL/min/1.73m2); Glucose 111 mg/dL (74-106); Sodium 129 mmol/L (136-145); Total Protein 7.5 g/dL (6.4-8.2)
[2024-10-07 00:05] LABS: Potassium 2.4 mmol/L (3.5-5.1)
[2024-10-08 14:41] LABS: IgA 271 mg/dL (85-499); Interpretation (See Note); Tissue Transglutaminase IgA <4.0 CU (<20.0)
== END 2024-10-06 22:01 | disposition home or self-care (01) ==
LOC: LBN 22:00
PROVIDERS: PCP Nurse Practitioner Family; Visit Provider Nurse Practitioner Family
DX: R74.8 Abnormal levels of other serum enzymes (principal); K92.2 Gastrointestinal hemorrhage, unspecified
CPT/HCPCS: 80053; 82784; 83516; 85027

== ENCOUNTER 2024-10-18 03:41 | Outpatient (CLI) | payer MEDICAID, SELFPAY ==
[2024-10-18 12:39] LABS: Potassium 3.0 mmol/L (3.5-5.1)
== END 2024-10-18 03:42 | disposition home or self-care (01) ==
LOC: LOS 03:42
PROVIDERS: PCP Nurse Practitioner Family; Visit Provider Nurse Practitioner Family
DX: E87.6 Hypokalemia (principal)
CPT/HCPCS: 36415; 84132

== ENCOUNTER 2024-10-22 11:11 | Outpatient (CLI) | payer MEDICAID, SELFPAY ==
[2024-10-22 12:35] LABS: ALT 54 U/L (14-59); AST 26 U/L (15-37); Albumin 3.8 g/dL (3.4-5.0); Alkaline Phosphatase 57 U/L (46-116); Anion Gap 9.4 mmol/L (3-11); BUN 10 mg/dL (7-18); Bilirubin, Total 0.3 mg/dL (0.2-1.0); CO2 29.6 mmol/L (21.0-32.0); Calcium 11.2 mg/dL (8.5-10.1); Chloride 100 mmol/L (98-107); Estimated GFR 109.30 (mL/min/1.73m2); Glucose 120 mg/dL (74-106); Potassium 3.7 mmol/L (3.5-5.1); Sodium 139 mmol/L (136-145); Total Protein 8.2 g/dL (6.4-8.2)
== END 2024-10-22 11:12 | disposition home or self-care (01) ==
PROVIDERS: PCP Nurse Practitioner Family; Referring Provider Nurse Practitioner Family; Visit Provider Nurse Practitioner Family
DX: R74.8 Abnormal levels of other serum enzymes (principal); E87.6 Hypokalemia
CPT/HCPCS: 36415; 80053